=== PATIENT | male | born 1990 ===

== ENCOUNTER 2017-07-23 16:11 | Emergency (ER) | payer SELFPAY ==
[2017-07-23 16:22] VITALS: BP 102/78; PULSE 77; RESP 16; TEMP 99.2; O2SAT 98
[2017-07-23] MEDS ORDERED: Sodium Chloride 0.9% 1,000 ML IV STA (16:54)
--- NOTE | 2017-07-23 17:12 | RAD ---
HISTORY: chest pain COMPARISON: No prior. TECHNIQUE: Chest PA and lateral FINDINGS: LUNGS: No active pulmonary disease. PLEURA: No significant pleural effusion identified. No pneumothorax apparent. CARDIOVASCULAR: Normal. OSSEOUS STRUCTURES: No significant abnormalities. VISUALIZED UPPER ABDOMEN: Normal. OTHER FINDINGS: None. IMPRESSION: No acute cardiopulmonary disease appreciated.
--- NOTE | 2017-07-23 17:15 | ED PDOC ---
HPI: Chest Pain Time Seen by Provider: 07/23/17 16:26 Chief Complaint (Nursing): Chest Pain Chief Complaint (Provider): Chest Pain History Per: Patient History/Exam Limitations: no limitations Onset/Duration Of Symptoms: Hrs Current Symptoms Are (Timing): Still Present Quality: Pressure Associated Symptoms: Nausea, Diaphoresis Additional Complaint(s): 27 year old healthy, male presents to the ED with complaints of sudden onset of non-radiating, light pressure, substernal chest pain, onset five hours prior to arrival. Patient reports pain as a light pressure associated with shortness of breath, diaphoresis, nausea, palpitations, and lightheadedness. Patient states pain has slowly resolved since arrival to the ER but states chest pain is still somewhat present. Patient reports of previous episodes with similar symptoms in the past occurring once every two/three weeks for about two months. Patient states he thought they were due to panic attacks. Today's episode seemed more prolonged and were never associated with nausea, as per patient. Additionally, patient reports of having one to two cups of caffeine a day. Patient has seasonal allergies and has been taking [place] to relieve symptoms. Patient is unsure of [place] includes sudafed. Denies increase of stress. PMD: None Provided Past Medical History Reviewed: Historical Data, Nursing Documentation, Vital Signs Vital Signs: Last Vital Signs Temp 99.2 F 07/23/17 16:20 Pulse 77 07/23/17 16:20 Resp 16 07/23/17 16:20 BP 102/78 07/23/17 16:20 Pulse Ox 98 07/23/17 17:25 - Medical History PMH: Anxiety, Asthma - Surgical History Surgical History: No Surg Hx - Family History Family History: States: No Known Family Hx - Social History Current smoker - smoking cessation education provided: No Ex-Smoker (has not smoked in the last 12 months): No Alcohol: Occasional Drugs: Denies - Allergies Allergies/Adverse Reactions: Allergies Allergy/AdvReac Type Severity Reaction Status Date / Time pollen extracts Allergy ANGIOEDEMA Verified 07/23/17 16:19 Review of Systems ROS Statement: Except As Marked, All Systems Reviewed And Found Negative (and as per HPI) Constitutional: Positive for: Sweats (diaphoresis) Cardiovascular: Positive for: Chest Pain (non-radiating, light pressure, substernal chest pain), Palpitations Respiratory: Positive for: Shortness of Breath Gastrointestinal: Positive for: Nausea Neurological: Positive for: Other (lightheadedness) Physical Exam - Reviewed Nursing Documentation Reviewed: Yes Vital Signs Reviewed: Yes - Physical Exam Appears: Positive for: Non-toxic, No Acute Distress Head Exam: Positive for: ATRAUMATIC, NORMOCEPHALIC Skin: Positive for: Warm, Dry Eye Exam: Positive for: EOMI, PERRL ENT: Negative for: Pharyngeal Erythema, Tonsillar Exudate Neck: Positive for: Painless ROM, Supple Cardiovascular/Chest: Positive for: Regular Rate, Rhythm, Chest Non Tender. Negative for: Murmur Respiratory: Positive for: Normal Breath Sounds. Negative for: Wheezing, Respiratory Distress Gastrointestinal/Abdominal: Positive for: Soft. Negative for: Tenderness Back: Positive for: Normal Inspection. Negative for: Decreased ROM Extremity: Positive for: Normal ROM. Negative for: Deformity Lymphatic: Negative for: Adenopathy Neurologic/Psych: Positive for: Alert. Negative for: Motor/Sensory Deficits - Laboratory Results Result Diagrams: 07/23/17 17:29 07/23/17 17:29 - ECG O2 Sat by Pulse Oximetry: 98 (RA) Pulse Ox Interpretation: Normal Medical Decision Making Medical Decision Making: Time: 165 Impression: chest pain Differentials include but not limited to reflux, panic attacks, anxiety, electrolyte abnormality , dehydration, and hosto-costochondritis Plan: -- EKG -- ED Urine Dipstick -- CXR Two Views -- Sodium Chloride IV 1000 mls/hr -- IV Insertion Time: 1702 CXR RESULTS FINDINGS: LUNGS: No active pulmonary disease. PLEURA: No significant pleural effusion identified. No pneumothorax apparent. CARDIOVASCULAR: Normal. OSSEOUS STRUCTURES: No significant abnormalities. VISUALIZED UPPER ABDOMEN: Normal. OTHER FINDINGS: None. IMPRESSION: No acute cardiopulmonary disease appreciated. Time: 1710 Plan: -- CBC with differentials -- CMP -- Lipase -- Magnesium -- Phosphorus -- Tyroid Stimulation -- Troponin I Labs unremarkable. On reeval pt stable. DW pt findings and plan of care. Pt to follow up at clinic for further evaluation Scribe Attestation: Documented by Joo Jaffe, acting as a scribe for Dr. Tati Montero. Provider Scribe Attestation: All medical record entries made by the Scribe were at my direction and personally dictated by me. I have reviewed the chart and agree that the record accurately reflects my personal performance of the history, physical exam, medical decision making, and the department course for this patient. I have also personally directed, reviewed, and agree with the discharge instructions and disposition. Disposition - Clinical Impression Clinical Impression: Palpitations Counseled Patient/Family Regarding: Studies Performed, Diagnosis, Need For Followup, Rx Given - Disposition Referrals: [facility] [Outside] Disposition: Routine/Home Disposition Time: 18:47 Condition: STABLE Additional Instructions: PLEASE DRINK PLENTY OR HYDRATING FLUIDS AND STAY WELL NOURISHED. AVOID CAFFEINE AND STIMULANTS (WHICH MAY BE FOUND IN SOME COLD MEDICATIONS.) Instructions: Palpitations (DC) Forms: [facility] ED School/Work Excuse
[2017-07-23 17:40] LABS: BASO % 0.4 % (0.0-2.0); EOS # 0.2 K/uL (0.0-0.7); EOS % 1.9 % (0.0-4.0); HEMOGLOBIN 13.3 g/dL (12.0-18.0); LYMPH # 1.5 K/uL (1.0-4.3); LYMPH % 16.1 % (20.0-40.0); MEAN CELL VOLUME 81.7 fl (80.0-94.0); MEAN CORPUSCULAR HEMOGLOBIN 27.3 pg (27.0-31.0); MEAN CORPUSCULAR HGB CONC 33.5 g/dL (33.0-37.0); MEAN PLATELET VOLUME 7.8 fl (7.2-11.7); MONO # 0.4 K/uL (0.0-0.8); MONO % 4.7 % (0.0-10.0); NEUT % 76.9 % (50.0-75.0); RBC 4.85 Mil/uL (4.40-5.90)
[2017-07-23 17:53] LABS: ALB/GLOB RATIO 1.4 (1.0-2.1); ALBUMIN 4.5 g/dL (3.5-5.0); ALT/SGPT 28 U/L (21-72); AST/SGOT 34 U/L (17-59); BLOOD UREA NITROGEN 21 mg/dl (9-20); CALCIUM 8.9 mg/dL (8.4-10.2); GFR AFRICAN-AMERICAN > 60; GFR NON-AFRICAN AMERICAN > 60; LIPASE 80 U/L (23-300)
--- NOTE | 2017-07-24 15:28 | CARD ---
APPROVED REPORT EKG Measurement Heart [id number] <Conclusion> Normal sinus rhythm with sinus arrhythmia Normal ECG
== END 2017-07-23 19:24 | disposition home or self-care (01) ==
LOC: H.ER 16:11
DX: R00.2 Palpitations (principal); F41.9 Anxiety disorder, unspecified
CPT/HCPCS: 71046; 80053; 83690; 83735; 84100; 84443; 84484; 85025; 93005; 99284; J7030